=== PATIENT | male | born 1975 | race Caucasian/White ===

== ENCOUNTER 2017-05-19 14:19 | Emergency (ER) | payer MEDICAID ==
[~2017-05-19] VITALS: Ht 188 cm; Wt 90.3 kg
[2017-05-19 14:21] VITALS: BP 135/77
[2017-05-19] MEDS ORDERED: KETOROLAC 30 MG/1 ML IM ONE (15:00)
[2017-05-19] MEDS ORDERED: KETOROLAC 30 MG/1 ML ONE (15:00)
== END 2017-05-19 15:43 | disposition home or self-care (01) ==
LOC: ED 15:20
DX: S93.491A Sprain of other ligament of right ankle, initial encounter (principal); M25.572 Pain in left ankle and joints of left foot; X50.1XXA Overexertion from prolonged static or awkward postures, initial encounter; Y93.89 Activity, other specified; Y92.89 Other specified places as the place of occurrence of the external cause; Y99.8 Other external cause status
CPT/HCPCS: 73610; 73630; 96372; 99284; J1885